=== PATIENT | male | born 1965 | race Caucasian/White ===

== ENCOUNTER 2022-10-23 08:19 | Day surgery (SDC) | payer MEDICAID, OTHER ==
[~2022-10-23 08:19] MED LIST: Midazolam 1 MG/ML 2 ML SDV ONE; Propofol 200 MG/20 ML SDV ONE; fentaNYL 50 MCG/ML SDV ONE
[2022-10-23] MEDS: Dextrose 5%-Lactated Ringers 1,000 ML IV SCH (08:58)
[2022-10-23] MEDS ORDERED: Propofol 200 MG/20 ML SDV ONE (10:25)
[2022-10-23 11:18] VITALS: BP 149/96; PULSE 81
== END 2022-10-23 11:32 | disposition home or self-care (01) ==
LOC: JP.SDS 08:19
PROVIDERS: ATTEND Surgery
DX: Z12.11 Encounter for screening for malignant neoplasm of colon (principal); E78.5 Hyperlipidemia, unspecified; Z79.899 Other long term (current) drug therapy; Z98.890 Other specified postprocedural states
CPT/HCPCS: 45378; J2250; J2704; J3010; J7121